=== PATIENT | male | born 1985 | race Caucasian/White ===

== ENCOUNTER → 2016-10-23 | Outpatient (CLI) | payer SELFPAY ==
[~2016-10-23] MED LIST: NO HOME MEDICATIONS; NORCO 325 MG-51 TAB PO; PREDNISONE20 MG PO
[2016-10-23 12:27] LABS: HIV-1p24 Antigen Non-Reactive
[2016-10-23 12:28] LABS: HIV 1/2 Antibodies Non-Reactive
[2016-10-23 14:06] LABS: CHLAMYDIA/TRACH by PCR Male NOT DETECTED; Neisseria Gon by PCR Male NOT DETECTED
== END ==
LOC: COL.LAB 11:02
PROVIDERS: Registered Nurse
DX: Z11.3 Encounter for screening for infections with a predominantly sexual mode of transmission (principal)

== ENCOUNTER → 2016-12-18 | Outpatient (CLI) | payer SELFPAY | LOC: COL.RAD 15:31 | DX: N43.3 Hydrocele, unspecified (principal); N50.9 Disorder of male genital organs, unspecified; R10.31 Right lower quadrant pain ==